=== PATIENT | male | born 1960 | race Caucasian/White ===

== ENCOUNTER 2017-06-02 11:37 | Outpatient (CLI) | payer MEDICAID ==
[~2017-06-02 11:37] MED LIST: ATI1T PO; CHLO25CA10 PO
== END 2017-06-02 23:59 | disposition home or self-care (01) ==
LOC: CARD DIAG 11:37
PROVIDERS: ATTEND Physician Assistant
DX: R94.31 Abnormal electrocardiogram [ECG] [EKG] (principal); Z79.899 Other long term (current) drug therapy
CPT/HCPCS: 93005

== ENCOUNTER 2017-10-30 12:07 | Inpatient (IN) | payer MEDICAID ==
[~2017-10-30] VITALS: Ht 170.2 cm; Wt 81.8 kg
[2017-10-30] MEDS ORDERED: LORazepam 1 MG tablet PO ONE (13:30)
[2017-10-30 13:58] LABS: BASOPHILS % (AUTO) 0.3 % (0-1); EOSINOPHILS # (AUTO) 0.1 X10'3 (0-0.9); EOSINOPHILS % (AUTO) 0.9 % (0-6); HEMATOCRIT 42.7 % (42.0-52.0); HEMOGLOBIN 14.6 g/dl (14.0-17.9); LYMPHOCYTES % (AUTO) 33.1 % (21-51); MEAN CORPUSCULAR HEMOGLOBIN 30.3 PG (27.0-31.0); MEAN CORPUSCULAR HGB CONC 34.1 % (33.0-36.5); MEAN PLATELET VOLUME 6.8 FL (7.4-10.4); MONOCYTES # (AUTO) 0.5 X10'3 (0-0.9); MONOCYTES % (AUTO) 7.8 % (2-12); NEUTROPHILS # (AUTO) 3.4 X10'3 (1.8-7.7); NEUTROPHILS % (AUTO) 57.9 % (42-75); PLATELET COUNT 106 X10'3 (140-440); RED BLOOD COUNT 4.79 X10'6 (4.70-6.10); RED CELL DISTRIBUTION WIDTH 14.8 % (11.5-14.5); WHITE BLOOD COUNT 5.9 X10'3 (4.5-11.0)
[2017-10-30 14:01] LABS: CLARITY,URINE CLEAR (Clear); COLOR,URINE YELLOW (Yellow); GLUCOSE, URINE NEGATIVE (Neg); KETONES,URINE NEGATIVE (Neg); LEUKOCYTE ESTERASE ,URINE NEGATIVE (Neg); NITRITES, URINE NEGATIVE (Neg); OCCULT BLOOD,URINE NEGATIVE (Neg); PROTEIN,URINE NEGATIVE (Neg); UA COLLECTION TYPE URINAL; UROBILINOGEN,URINE 0.2 E.U/dL (0.2-1.0)
[2017-10-30 14:13] LABS: ALANINE AMINOTRANSFERASE 53 U/L (12-78); ALBUMIN/GLOBULIN RATIO 0.9 (1.1-1.5); ALKALINE PHOSPHATASE 112 IU/L (46-116); ANION GAP 9 (8-16); ASPARTATE AMINO TRANSFERASE 34 U/L (10-37); BILIRUBIN,TOTAL 0.6 MG/DL (0.1-1.0); BLOOD UREA NITROGEN 8 MG/DL (7-18); BUN/CREATININE RATIO 7.7 (5.4-32.0); CALCIUM 8.7 MG/DL (8.5-10.1); CHLORIDE 99 MMOL/L (99-107); CREATININE 1.04 MG/DL (0.60-1.10); GLUCOSE 107 MG/DL (70-104); POTASSIUM 3.4 MMOL/L (3.5-5.1); SODIUM 137 MMOL/L (135-145); TOTAL PROTEIN 8.4 G/DL (6.4-8.2); eGFR 74 ML/MIN
[2017-10-30 14:20] LABS: URINE AMPHETAMINE SCREEN NEGATIVE (Neg); URINE BARBITUATE SCREEN NEGATIVE (Neg); URINE BENZODIAZEPINES SCREEN NEGATIVE (Neg); URINE CANNABINOID SCREEN NEGATIVE (Neg); URINE COCAINE SCREEN NEGATIVE (Neg); URINE METHADONE SCREEN NEGATIVE (Neg); URINE OPIATE SCREEN NEGATIVE (Neg); URINE PHENCYCLIDINE SCREEN NEGATIVE (Neg)
[2017-10-30 14:22] LABS: ETHANOL < 0.010 GM/DL (0.0-0.010)
[2017-10-30 14:23] LABS: ACETAMINOPHEN < 2.0 UG/ML (10-30)
[2017-10-30] MEDS ORDERED: ziprasidone IM 20mg inj **IM only IM PRN (16:35)
[2017-10-30] MEDS ORDERED: ZOLP10TA5 PO (17:15)
[2017-10-30] MEDS ORDERED: SERT100T10 PO (17:15)
[2017-10-30] MEDS ORDERED: BENZ1TAB7 PO (17:15)
[2017-10-30] MEDS ORDERED: DOCU-267 PO (17:15)
[2017-10-30] MEDS ORDERED: PROP10TA10 PO (17:15)
[2017-10-30] MEDS ORDERED: HYDR-3686 PO (17:15)
[2017-10-30] MEDS ORDERED: BUPR300T53 PO (17:15)
[2017-10-30] MEDS ORDERED: QUET-1 PO (17:15)
[2017-10-30] MEDS ORDERED: zolpidem 5mg tablet PO PRN (17:35)
[2017-10-30] MEDS: sertraline 50mg tablet PO SCH (20:56)
[2017-10-30] MEDS: buPROPion SR 150mg tablet PO SCH (20:56)
[2017-10-30] MEDS: benztropine 1mg tablet PO SCH (20:56)
[2017-10-30] MEDS: propranolol 10mg tablet PO SCH (21:22)
[2017-10-30] MEDS: quetiapine 100mg tablet PO PRN (21:22)
[2017-10-30] MEDS: docusate sod 100mg capsule PO PRN (21:22)
[2017-10-31] MEDS: benztropine 1mg tablet PO SCH ×2 (09:19→19:11)
[2017-10-31] MEDS: docusate sod 100mg capsule PO PRN (09:20)
[2017-10-31] MEDS: buPROPion SR 150mg tablet PO SCH ×2 (09:20→19:11)
[2017-10-31] MEDS: propranolol 10mg tablet PO SCH ×2 (09:20→19:11)
[2017-10-31] MEDS: sertraline 50mg tablet PO SCH (20:40)
[2017-11-01] MEDS: propranolol 10mg tablet PO SCH ×2 (08:31→21:21)
[2017-11-01] MEDS: docusate sod 100mg capsule PO PRN (08:31)
[2017-11-01] MEDS: benztropine 1mg tablet PO SCH ×2 (08:31→21:20)
[2017-11-01] MEDS: hydrOXYzine 25 MG tablet PO PRN ×2 (08:31→14:42)
[2017-11-01] MEDS ORDERED: nicotine 14mg patch - 24hr TD ONE (09:35)
[2017-11-01] MEDS: buPROPion SR 150mg tablet PO SCH ×2 (09:54→21:19)
[2017-11-01] MEDS ORDERED: paliperidone palmitate 156 mg/ml inj.**IM only IM ONE (12:15)
[2017-11-01] MEDS ORDERED: paliperidone palmitate inj 234 MG/1.5 ML SYRINGE IM ONE (12:15)
[2017-11-01] MEDS ORDERED: LORazepam 1 MG tablet PO ONE (15:25)
[2017-11-01] MEDS ORDERED: ziprasidone 20mg capsule PO ONE (15:25)
[2017-11-01] MEDS ORDERED: ziprasidone 20mg capsule PO PRN (15:35)
[2017-11-01] MEDS: sertraline 50mg tablet PO SCH (21:20)
[2017-11-01] MEDS: quetiapine 100mg tablet PO PRN (21:21)
[2017-11-02] MEDS: buPROPion SR 150mg tablet PO SCH ×2 (08:47→20:43)
[2017-11-02] MEDS: benztropine 1mg tablet PO SCH ×2 (08:47→20:43)
[2017-11-02] MEDS: propranolol 10mg tablet PO SCH ×2 (08:47→20:41)
[2017-11-02] MEDS ORDERED: BUPR-94 PO (16:07)
[2017-11-02] MEDS ORDERED: ZIPR20CA2 PO (16:11)
[2017-11-02] MEDS: sertraline 50mg tablet PO SCH (20:42)
[2017-11-02] MEDS: quetiapine 100mg tablet PO PRN (20:42)
[2017-11-02] MEDS ORDERED: magnesium 4gm in 100ml NS 100 ML IV PRN (21:50)
[2017-11-02] MEDS ORDERED: potassium Cl 40MEQ/NS 500ml 500 ML IV PRN ×2 (21:50)
[2017-11-02] MEDS ORDERED: potassium Cl 20 mEq SR tablet PO PRN ×2 (21:50)
[2017-11-02] MEDS ORDERED: ondansetron/PF 4mg/2ml inj IV PRN (21:50)
[2017-11-02] MEDS ORDERED: ipratropium/albuterol 3ml nebule NEB PRN (21:50)
[2017-11-02] MEDS ORDERED: magnesium 1gm/100ml D5W IVPB 100 ML IV PRN (21:50)
[2017-11-02] MEDS ORDERED: acetaminophen 325mg tablet PO PRN (21:50)
[2017-11-02] MEDS ORDERED: docusate sod 100mg capsule PO PRN (21:50)
[2017-11-02] MEDS ORDERED: mag hydrox/Alum hydrox/simeth 30ml oral suspension PO PRN (21:50)
[2017-11-02 22:40] VITALS: BP 115/89
[2017-11-03 06:00] VITALS: BP 110/75
[2017-11-03 06:01] LABS: BASOPHILS % (AUTO) 0.3 % (0-1); EOSINOPHILS # (AUTO) 0.1 X10'3 (0-0.9); EOSINOPHILS % (AUTO) 1.1 % (0-6); HEMATOCRIT 42.7 % (42.0-52.0); HEMOGLOBIN 14.8 g/dl (14.0-17.9); LYMPHOCYTES # (AUTO) 2.2 X10'3 (1.1-4.8); LYMPHOCYTES % (AUTO) 43.4 % (21-51); MEAN CORPUSCULAR HEMOGLOBIN 30.6 PG (27.0-31.0); MEAN CORPUSCULAR HGB CONC 34.7 % (33.0-36.5); MEAN CORPUSCULAR VOLUME 88.3 FL (78-98); MONOCYTES # (AUTO) 0.5 X10'3 (0-0.9); MONOCYTES % (AUTO) 9.1 % (2-12); NEUTROPHILS # (AUTO) 2.3 X10'3 (1.8-7.7); NEUTROPHILS % (AUTO) 46.1 % (42-75); PLATELET COUNT 103 X10'3 (140-440); RED BLOOD COUNT 4.83 X10'6 (4.70-6.10); RED CELL DISTRIBUTION WIDTH 15.5 % (11.5-14.5)
[2017-11-03 06:09] LABS: ALANINE AMINOTRANSFERASE 88 U/L (12-78); ALBUMIN 3.5 G/DL (3.4-5.0); ALBUMIN/GLOBULIN RATIO 0.8 (1.1-1.5); ALKALINE PHOSPHATASE 117 IU/L (46-116); ANION GAP 11 (8-16); ASPARTATE AMINO TRANSFERASE 50 U/L (10-37); BILIRUBIN,TOTAL 0.5 MG/DL (0.1-1.0); BLOOD UREA NITROGEN 9 MG/DL (7-18); BUN/CREATININE RATIO 9.9 (5.4-32.0); CALCIUM 8.6 MG/DL (8.5-10.1); CHLORIDE 101 MMOL/L (99-107); CHOL/HDL RATIO 3.1 (0.00-4.99); CHOLESTEROL 135 MG/DL (0-200); CREATININE 0.91 MG/DL (0.60-1.10); GLUCOSE 92 MG/DL (70-104); HDL CHOLESTEROL 44 MG/DL (35-60); LDL CHOLESTEROL 82 MG/DL (50-100); MAGNESIUM 1.5 MG/DL (1.5-2.4); POTASSIUM 3.5 MMOL/L (3.5-5.1); SODIUM 137 MMOL/L (135-145); TOTAL CARBON DIOXIDE 25.3 MMOL/L (24-32); TOTAL PROTEIN 7.9 G/DL (6.4-8.2); TRIGLYCERIDES 53 MG/DL (20-135); eGFR 86 ML/MIN
[2017-11-03] MEDS ORDERED: K and/or MAG REPLACEMENT MC SCH (08:00)
[2017-11-03] MEDS ORDERED: enoxaparin 40mg/0.4ml syringe SQ SCH (08:00)
[2017-11-03] MEDS: buPROPion SR 150mg tablet PO SCH (08:21)
[2017-11-03] MEDS: benztropine 1mg tablet PO SCH (08:21)
[2017-11-03] MEDS: propranolol 10mg tablet PO SCH (08:21)
[2017-11-03 10:00] VITALS: BP 126/99
== END 2017-11-03 15:15 | DRG 52 ==
LOC: ER 12:07 → ED HOLD 11-02 21:46 → EDBEDREQ 11-02 22:07 → ORTHO 4S 11-02 22:43
PROVIDERS: ADMIT Family Medicine; ATTEND Internal Medicine
DX: G93.40 Encephalopathy, unspecified (principal); D69.6 Thrombocytopenia, unspecified; E87.6 Hypokalemia; F25.9 Schizoaffective disorder, unspecified; M54.9 Dorsalgia, unspecified; F10.11 Alcohol abuse, in remission; F41.9 Anxiety disorder, unspecified; M19.90 Unspecified osteoarthritis, unspecified site; E78.5 Hyperlipidemia, unspecified; G89.29 Other chronic pain; F17.200 Nicotine dependence, unspecified, uncomplicated; I10 Essential (primary) hypertension; F32.9 Major depressive disorder, single episode, unspecified; Z91.048 Other nonmedicinal substance allergy status; Z90.49 Acquired absence of other specified parts of digestive tract; Z79.899 Other long term (current) drug therapy
CPT/HCPCS: 36415; 70450; 70544; 70551; 71045; 80053; 80061; 80305; 80320; 80329; 81003; 82140; 83605; 83735; 84443; 85025; 87040; 87070; 93306; 94760; 96372; 99285; J1650; J3486; Q0177

== ENCOUNTER 2017-11-03 15:15 | Emergency (ER) | payer MEDICAID ==
[~2017-11-03] VITALS: Ht 177.8 cm; Wt 86.4 kg
[~2017-11-03 15:15] MED LIST changes: +BENZ1TAB7 PO; +BUPR-94 PO; +BUPR300T53 PO; +DOCU-267 PO; +HYDR-3686 PO; +PROP10TA10 PO; +QUET-1 PO; +SERT100T10 PO; +ZIPR20CA2 PO; +ZOLP10TA5 PO
[2017-11-03 17:27] VITALS: BP 147/97
== END 2017-11-03 18:52 ==
LOC: ER 15:16
DX: F20.9 Schizophrenia, unspecified (principal); F10.10 Alcohol abuse, uncomplicated; F41.9 Anxiety disorder, unspecified; F32.9 Major depressive disorder, single episode, unspecified; Z98.890 Other specified postprocedural states; Z91.018 Allergy to other foods; Z79.899 Other long term (current) drug therapy; Y90.9 Presence of alcohol in blood, level not specified
CPT/HCPCS: 99285

== ENCOUNTER 2018-07-20 11:13 | Emergency (ER) | payer MEDICAID ==
[~2018-07-20] VITALS: Ht 179.1 cm; Wt 77.0 kg
[~2018-07-20 11:13] MED LIST changes: -ATI1T PO; -BUPR300T53 PO; -CHLO25CA10 PO; -ZOLP10TA5 PO
[2018-07-20 11:31] VITALS: BP 112/82
[2018-07-20] MEDS ORDERED: BACDS PO (12:42)
== END 2018-07-20 12:45 | disposition home or self-care (01) ==
LOC: ER 11:14
DX: A49.02 Methicillin resistant Staphylococcus aureus infection, unspecified site (principal); Z98.890 Other specified postprocedural states; Z91.02 Food additives allergy status; Z79.899 Other long term (current) drug therapy
CPT/HCPCS: 99283